=== PATIENT | male | born 1965 | race Caucasian/White ===

== ENCOUNTER 2020-06-24 08:24 | Outpatient (CLI) | payer OTHER, SELFPAY ==
--- NOTE | 2020-06-24 08:50 | ECG_ITS ---
Measurements Intervals Anderson Rate: 101 P: ME: 0 QRS: 40 QRSD: 98 T: 39 QT: 344 QTc: 447 Interpretive Statements ATRIAL FIBRILLATION WITH RAPID VENTRICULAR RESPONSE DELAYED PRECORDIAL R/S TRANSITION BASELINE ARTIFACT- I, II, III, AVR, AVL, AVF ABNORMAL ECG Electronically Signed On 06-24-2020 8:55:57 CDT by Mal Winters D.O.
== END 2020-06-24 08:25 | disposition home or self-care (01) ==
DX: I48.19 Other persistent atrial fibrillation (principal)
CPT/HCPCS: 93005

== ENCOUNTER 2021-01-09 13:51 | Emergency (ER) | payer OTHER, SELFPAY ==
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
[2021-01-09 13:52] VITALS: BP 157/96; PULSE 90; RESP 20; TEMP 36.6; O2SAT 97
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
[2021-01-09] MEDS: traMADol HCL (*CRX) 50 MG TABLET PO (14:46)
[2021-01-09] MEDS: TETANUS,DIPHTHERIA,AC PERTUSSIS ADULT 0.5 ML (ADACEL) IM (14:47)
[2021-01-09] MEDS: NEOMYCIN/POLYMYXIN/BACITRACIN OINTMENT 15 GM TUBE 1 APPLIC TOPICAL (14:48)
[2021-01-09 15:00] VITALS: BP 147/87; PULSE 87; RESP 20; TEMP 37.1; O2SAT 97
== END 2021-01-09 15:02 | disposition home or self-care (01) ==
PROVIDERS: Emergency Provider Emergency Medicine
DX: S13.4XXA Sprain of ligaments of cervical spine, initial encounter (principal); S40.212A Abrasion of left shoulder, initial encounter; S09.90XA Unspecified injury of head, initial encounter; V43.92XA Unspecified car occupant injured in collision with other type car in traffic accident, initial encounter
CPT/HCPCS: 70450; 90471; 90715; 99283; 99284; A9270

== ENCOUNTER 2021-12-04 11:06 | Outpatient (CLI) | payer OTHER, SELFPAY ==
[2021-12-04 11:56] LABS: Anion Gap 8 mmol/L (8-16); Blood Urea Nitrogen 19 mg/dL (7-18); Carbon Dioxide 29 mmol/L (21-32); Chloride 102 mmol/L (98-108); Estimated Glomerular Filt Rate > 60; Glucose 126 mg/dL (70-99); Osmolality Calculated 292 mOsm/kg (285-295); Potassium 4.4 mmol/L (3.5-5.1); Sodium 139 mmol/L (136-145)
== END 2021-12-04 11:07 | disposition home or self-care (01) ==
LOC: CHSLAB 11:16
PROVIDERS: PCP Family Medicine
DX: I48.19 Other persistent atrial fibrillation (principal); R53.83 Other fatigue; I10 Essential (primary) hypertension
CPT/HCPCS: 36415; 80048

== ENCOUNTER 2022-08-15 14:15 | Outpatient (CLI) | payer OTHER, SELFPAY ==
--- NOTE | ~2022-08-15 | XR_ITS ---
XR ankle RT min 3V DATE: 08/15/2022 14:30 INDICATION: Lateral pain and swelling for 3 days TECHNIQUE: 4 views COMPARISON: None FINDINGS: Plantar and posterior calcaneal enthesopathy. Mild lateral soft tissue swelling. No fracture or dislocation of the ankle or disruption of the ankle mortise is detected. No periosteal reaction or bone destruction. IMPRESSION: Mild lateral ankle soft tissue swelling Plantar and posterior calcaneal enthesopathy Reviewed, dictated and finalized at location B. HOME INDEPENDENT CALL CENTER AGENT
== END 2022-08-15 14:16 | disposition home or self-care (01) ==
LOC: CHSIMG 14:16
PROVIDERS: PCP Family Medicine; Visit Provider Family Medicine
DX: M25.571 Pain in right ankle and joints of right foot (principal); M79.89 Other specified soft tissue disorders; M77.31 Calcaneal spur, right foot
CPT/HCPCS: 73610

== ENCOUNTER 2022-08-29 13:28 | Outpatient (RCR) | payer OTHER, SELFPAY ==
--- NOTE | 2022-08-29 14:05 | PTOPEVAL1 ---
Assessment and note entered by JT File, PT Evaluation Information Assessment Status Evaluation Diagnosis R ankle pain, sprain Onset 07/10/22 Subjective Information patient reports he is coming to therapy for pain in the R ankle. he reports he has rolled this ankle many times in his life. he reports about 6 weeks ago he began having intense pain in the ankle, and felt some swelling in the joint. he reports he felt a knot on the side of the R ankle. he reports he has had an xray of the R ankle. 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 he reports he has increased pain in the R ankle with rolling the foot inwards in such a way to cause an inversion sprain. he reports noticing a limp with walking. Reported Pain Level Pain Score 3: Self Report Assessment PT Clinical Summary mr. hooper presents to skilled PT services for evaluation and treatment of R ankle pain. he presents with decreased rom, pain with palpation, swelling, and weakness. 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 he would benefit from skilled PT to improve his ankle strength, rom, stability, and return to his prior level functional activity performance/quality of life. Plan of Care Interventions Electrical Stimulation,Gait Training,Hot Pack/Cold Pack,Manual Therapy,Neuro Re-education,Patient/ Caregiver Educati,Therapeutic Activities, Therapeutic Exercise PT Services Indicated Yes Treatment Frequency and 3x weekly for 9 visits Duration These treatments will address the objective and functional deficits as defined above. The patient will be advanced safely and appropriately in order for the patient to progress towards his/her prior level of function. Additional exercises will be introduced and as well as a comprehensive home exercise program upon discharge, if needed, ?to ensure carryover of functional gains achieved in the clinic. This treatment plan has been reviewed and agreement upon by the patient.
== END 2022-09-17 16:10 | disposition home or self-care (01) ==
LOC: CHSPT 13:28
PROVIDERS: PCP Family Medicine; Visit Provider Family Medicine
DX: M25.571 Pain in right ankle and joints of right foot (principal)
CPT/HCPCS: 97014; 97110; 97112; 97140; 97161; 97530; G0283

== ENCOUNTER 2022-09-29 07:34 | Outpatient (CLI) | payer OTHER, SELFPAY ==
--- NOTE | ~2022-09-29 | MR_ITS ---
MRI of the right ankle Clinical history: Pain Technique: Coronal proton-density and proton-density fat-sat images, axial proton-density and proton- density fat-sat images, and sagittal proton-density and proton-density fat-sat images were acquired. Findings: Distal syndesmotic ligaments are intact. Posterior talofibular ligament and calcaneofibular ligament are intact. Anterior talofibular ligament is not clearly visualized, and presumably may be chronically torn. Deltoid ligament is intact. Medial flexor tendons, anterior extensor tendons, and Achilles tendon are intact. There is a longitud inal split tear of the peroneus brevis tendon at the level of the lateral malleolus. Peroneus longus tendon is intact. There is mild tenosynovitis of the peroneus tendons at the level of the calcaneus. Bone marrow signals are unremarkable. Visualized joint spaces are well-preserved. No significant join t effusion identified. Plantar fascia is intact. Normal signal preserved at the sinus Tarsi. There is minimal subcutaneous s oft tissue edema diffusely, without focal fluid collection. Impression: Longitudinal split tear of the peroneus brevis tendon, at the level of the lateral malleolus. Mild tenosynovitis of the peroneal tendons, as detailed above. Probable at least partial chronic tear of the anterior talofibular ligament. Reviewed, dictated and finalized at location . ATIC CRITIC Impression: Longitudinal split tear of the peroneus brevis tendon, at the level of the late ral malleolus. Mild tenosynovitis of the peroneal tendons, as detailed above. Probable at least partial chronic tear of the anterior talofibular ligament.
== END 2022-09-29 07:35 | disposition home or self-care (01) ==
LOC: CHSIMG 07:36
PROVIDERS: PCP Family Medicine; Visit Provider Family Medicine
DX: M25.571 Pain in right ankle and joints of right foot (principal); S96.811A Strain of other specified muscles and tendons at ankle and foot level, right foot, initial encounter; M65.871 Other synovitis and tenosynovitis, right ankle and foot
CPT/HCPCS: 73721

== ENCOUNTER 2022-10-25 11:44 | Outpatient (CLI) | payer OTHER, SELFPAY ==
--- NOTE | ~2022-10-25 | XR_ITS ---
XR elbow RT min 3V 10/25/2022 12:21 Indication: Right elbow pain Procedure: 4 views right elbow Comparison: No prior studies for comparison. Findings: There is polyarticular osteoarthritis of the right elbow. There are loose bodies adjacent t o the joint space. No significant joint effusion. No foreign bodies. No acute fracture or traumatic m alalignment. 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 Reviewed, dictated and finalized at location L. 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
[2022-10-25 11:55] LABS: Hematocrit 43.2 % (40.0-54.0); Hemoglobin 13.9 g/dL (14.0-18.0); Mean Corpuscular HGB Conc 32.2 g/dL (32.0-36.0); Mean Corpuscular Hemoglobin 27.7 pg (27.0-31.0); Mean Corpuscular Volume 86.1 fL (78.0-102.0); Mean Platelet Volume 8.9 fl (8.7-11.0); Platelet Count Result 242 K/mm3 (150-420); Red Blood Count 5.02 M/mm3 (4.70-6.10); Red Cell Distribution Width 13.5 % (11.6-14.4); White Blood Count 8.2 K/mm3 (4.8-10.8)
[2022-10-25 12:48] LABS: Alanine Aminotransferase 40 U/L (16-63); Albumin Level 3.8 g/dL (3.4-5.0); Alkaline Phosphatase 129 U/L (46-116); Anion Gap 6 mmol/L (8-16); Aspartate Amino Transferase 26 U/L (15-37); Bilirubin,Total 0.3 mg/dL (0.00-1.00); Blood Urea Nitrogen 17 mg/dL (7-18); Calcium 9.1 mg/dL (8.5-10.1); Carbon Dioxide 33 mmol/L (21-32); Chloride 103 mmol/L (98-108); Estimated Glomerular Filt Rate > 60; Glucose 140 mg/dL (70-99); Osmolality Calculated 297 mOsm/kg (285-295); Sodium 142 mmol/L (136-145); Total Protein 7.1 g/dL (6.4-8.2)
== END 2022-10-25 11:45 | disposition home or self-care (01) ==
LOC: CHSLAB 11:44
PROVIDERS: PCP Family Medicine; Visit Provider Family Medicine
DX: Z01.818 Encounter for other preprocedural examination (principal); M25.521 Pain in right elbow; M19.021 Primary osteoarthritis, right elbow
CPT/HCPCS: 36415; 73080; 80053; 85027

== ENCOUNTER 2025-02-10 09:30 | Outpatient (CLI) | payer MEDICARE, SELFPAY ==
[2025-02-10 10:02] LABS: Basophils Absolute Auto 0.04 K/mm3 (0.00-0.10); Basophils Percent Auto 0.6 % (0.0-1.0); Eosinophils Absolute Auto 0.09 K/mm3 (0.02-0.50); Eosinophils Percent Auto 1.3 % (1.0-6.0); Hematocrit 46.7 % (40.0-54.0); Immature Granulocyte Absolute 0.03 K/mm3 (0.00-0.00); Immature Granulocyte Percent A 0.4 % (0.0-0.0); Lymphocytes Absolute Auto 2.34 K/mm3 (1.10-4.50); Lymphocytes Percent Auto 34.8 % (18.0-42.0); Mean Corpuscular HGB Conc 32.1 g/dL (32-36); Mean Corpuscular Hemoglobin 27.7 pg (27.0-31.0); Mean Corpuscular Volume 86.3 fL (78.0-102.0); Mean Platelet Volume 9.1 fl (8.7-11.0); Monocytes Percent Auto 8.9 % (2.0-11.0); Neutrophils Absolute Auto 3.63 K/mm3 (1.70-7.20); Platelet Count Result 217 K/mm3 (150-420); Red Blood Count 5.41 M/mm3 (4.70-6.10); Red Cell Distribution Width 13.4 % (11.6-14.4); White Blood Count 6.7 K/mm3 (4.8-10.8)
[2025-02-10 10:22] LABS: Alanine Aminotransferase 47 U/L (6-50); Albumin Level 4.3 g/dL (3.5-5.1); Alkaline Phosphatase 91 U/L (38-126); Anion Gap 5 mmol/L (4-12); Aspartate Amino Transferase 47 U/L (17-59); Bilirubin,Total 0.6 mg/dL (0.2-1.3); Blood Urea Nitrogen 15 mg/dL (9-20); Calcium 9.1 mg/dL (8.4-10.2); Carbon Dioxide 28 mmol/L (22-30); Chloride 105 mmol/L (98-107); Cholesterol 152 mg/dL (0-200); Estimated Glomerular Filt Rate > 60; Glucose 98 mg/dL (65-110); HDL Direct 56 mg/dL; LDL Cholesterol Calculated 84 mg/dL (<130); Osmolality Calculated 286 mOsm/kg (285-295); Potassium 4.7 mmol/L (3.4-5.0); Sodium 138 mmol/L (137-145); Triglycerides 62 mg/dL (<150)
--- OUTSIDE RECORDS SUMMARY | 2025-02-10 10:29 | XMS_ITS | Clinical Summary ---
Author Organization [facility] Medical Office Building [address] Address [address] [place] [address] Care Team Providers Care Vascular Radiologist Name Role Phone Samia Narayan NP Primary Care Provider [phone] Allergies No known active allergies Medications dilTIAZem XR (CARDIZEM CD,DILACOR XR) 240 mg 24 hr capsuleIndicatio ns:Atrial fibrillation, unspecified type (HCC) Take 1 capsule (240 mg total) by mouth daily 30 capsule 3 07/03/2019 Active Pacerone 200 mg tablet 06/17/2020 Active metoprolol XL (TOPROL-XL) 50 mg extended release tablet Take 50 mg by mouth daily 06/14/2020 Active apixaban (ELIQUIS) 5 mg tablet Take 5 mg by mouth 2 (two) times a day 05/27/2019 Active Active Problems Problem Noted Date Diagnosed Date Lung mass 07/20/2014 Overview (11/29/2016): Lung mass Pulmonary function studies abnormal 07/20/2014 Overview (11/29/2016): Abnormal results of pulmonary function studies Abnormal lobation of lung 07/20/2014 Overview (11/29/2016): Abnormal lung lobation Asbestos pleurisy 07/20/2014 Overview (11/29/2016): Acute asbestos pleurisy Surgical History Surgery Date Site/Laterality Comments KNEE SURGERY KNEE ARTHROSCOPY CARPAL TUNNEL RELEASE Medical History Medical History Date Comments Hx Other Medical 2001 Lasix Hx Other Medical hiatal hernia Hx Other Medical chest re-attach ment Hiatal hernia Hypertension Social History Tobacco Use Types Packs/Day Years Used Date Smoking Tobacco: Never Smokeless Tobacco: Never Alcohol Use Standard Drinks/Week Comments No 0 (1 standard drink = 0.6 oz pur e alcohol) Sex and Gender Information Value Date Recorded Sex Assigned at Not on file Legal Sex Male 11:32 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 Gender Identity Not on file Sexual Orientation Not on file Obstetrics History Last Filed Vital Signs Vital Sign Reading Time Taken Comments Blood Pressure 137/83 06/21/2020 10:42 AM CDT Pulse 71 06/21/2020 10:42 AM CDT Temperature 36.8 C (98.2 F) 06/21/2020 10:42 AM CDT Respiratory Rate - - Oxygen Saturation 96% 07/20/2014 3:29 PM KNOWLEDGE ANALYST Inhaled Oxygen Concentration - - Weight 122.5 kg (270 lb) 06/21/2020 10:42 AM CDT Height 185.4 cm (6' 1) 06/21/2020 10:42 AM CDT Body Mass Index 35.62 06/21/2020 10:42 AM CDT Plan of Treatment Not on file Insurance [employer] OPEN ACCESS Care Teams Vascular Radiologist Relationship Specialty Start Date End Date Samia Narayan NP PCP - General Nurse Practitioner 06/15/20
--- OUTSIDE RECORDS SUMMARY | 2025-02-10 10:29 | XMS_ITS | Continuity of Care Document ---
Author Organization [facility] Address [address] [facility] [address] [place] [address] Phone Care Team Providers Care Outreach Worker Name Role Phone Tien Huffman MD, FACS Unavailable Unavailab le Advance Directives Directive Yes / No Effective Date File Name No Information Encounters Encounter Description Practice Location Reason(s) For Visit Diagnoses Date Provider Providers Copied on Encounter [facility], [address], [place], [place], [id number], [place] tel:[phone] [facility] 67 No Information [address]anael Chauhan. [address], [address], [place], [place], [id number], [place]. tel:[phone] Family History Family Member Type Diagnosis Age At Onset No Information Payers Payer name Insurance type Covered green party ID Authoriza tiklaus(s) VSP CI [id number] Social History Type Description Quantity Date Captured Comments Sex Male Smoking Status No Information Chief Complaint And Reason For Visit No Information Reason For Referral Reason For Referral No Information History Of Present Illness Encounter Date Complaint History Of Prese nt Illness No Information Functional Status Date Functional Assessmen t No Information Instructions Date Instruction Additional Infor mation No Information Assessments Type Assessment Date No Information Patient Care Teams Name Effective Dates (start - stop) Status Members No Information
--- OUTSIDE RECORDS SUMMARY | 2025-02-10 10:29 | XMS_ITS | Clinical Summary ---
Author Organization [facility] Address [address] [place] [address] Phone Care Team Providers Care End Polisher Name Role Phone Unavailable Primary Care Provider Unavailabl e Allergies No known active allergies Medications Aspirin 81 MG Tablet Take 81 mg by mouth daily. Active dilTIAZem (CARDIZEM CD) 240 MG CAPSULE SR 24 HR Take 240 mg by mouth. 9 Active PACERONE 200 MG Tablet TAKE 1 TABLET BY MOUTH EVERY DAY 90 Tab 3 0 Active Eliquis 5 MG Tablet TAKE 1 TABLET BY MOUTH TWICE A DAY. INDICATIONS: ATRIAL FIBRILLATION 180 Tablet 1 Active Active Problems Problem Noted Date Diagnosed Date Obstructive sleep apnea 10/21/2019 On continuous oral anticoagulation 10/21/2019 History of snoring 09/25/2019 Myalgia 05/29/2019 Osteoarthrosis 05/29/2019 Polyarthralgia Pain in unspecified joint 019 Undifferentiated inflammatory polyarthritis 11/2018 Atrial fibrillation with RVR 05/25/2019 Atrial fibrillation 09/25/2017 Pulmonary function studies abnormal 07/20/2014 Overview (09/25/2017): Overview: Abnormal results of pulmonary function studies Lung mass 07/20/2014 Overview (09/25/2017): Overview: Lung mass Asbestos pleurisy 07/20/2014 Overview (09/25/2017): Overview: Acute asbestos pleurisy Abnormal lobation of lung 07/20/2014 Overview (09/25/2017): Overview: Abnormal lung lobation Hypertension Overview (05/25/2019): Hx Resolved Problems Problem Noted Date Diagnosed Date Resolved Date High blood pressure 09/25/2019 09/28/19 20 High blood pressure 07/29/2018 09/28/19 20 Immunizations Immunization Administration Dates Next Due TDAP Vaccine 09/24/2017 Family History Medical History Relation Name Comments No Known Problems Father Heart Surgery Mother Relation Name Status Comments Father Alive Mother Alive Social History Tobacco Use Types Packs/Day Years Used Date Smoking Tobacco: Never Smokeless Tobacco: Never Alcohol Use Standard Drinks/Week Comments No 0 (1 standard drink = 0.6 oz pur e alcohol) PHQ-2 Answer Date Recorded Total Score - Questions 1-9 0 05/27 Sex and Gender Information Value Date Recorded Sex Assigned at Not on file Legal Sex Male 11:[address] REFEREE Gender Identity Not on file Sexual Orientation Not on file Last Filed Vital Signs Vital Sign Reading Time Taken Comments Blood Pressure 118/82 06/14/2020 7:36 AM CDT unable to get due to afib Pulse 113 06/14/2020 7:36 AM CDT Temperature 36.7 C (98 F) 06/14/2020 7:36 AM CDT Respiratory Rate 18 06/14/2020 7:36 AM CDT Oxygen Saturation 98% 06/14/2020 7:3 6 AM CDT Inhaled Oxygen Concentration - - Weight 123.5 kg (272 lb 3.2 oz) 06/14/2020 7:36 AM CDT Height 185.4 cm (6' 1) 06/14/2020 7:36 AM CDT Body Mass Index 35.91 06/14/2020 7:36 AM CDT Plan of Treatment Health Maintenance Due Date Last Done Comments Hepatitis C Virus (HCV) Screening 1965 Hepatitis B Immunization (1 of 3 - 19+ 3-dose series) 1985 Cologuard 01/01/2012 Colonoscopy 01/01/2012 Pneumococcal Immunization (5 0+ years) (1 of 1 - PCV) 2016 Zoster Immunization (1 of 2) 2016 Colorectal Cancer Screening 09/30/2020 Immunochemical Fecal Occult Blood 09/30/2020 020 SARS-COV-2 Immunization ( season) 2024 Influenza Immunization (Seas on Ended) 2025 Td Immunization Every 10 Yea rs (Adults With 1 Tdap) 09/24/2027 09/24/2017 Respiratory Syncytial Virus (RSV) Immunization (Adult) (1 - 1-dose 75+ series) 2041 PSA Discussion Discontinued 11/17/2018 Human Papillomavirus (HPV) Immunization Aged Out No longer eligible b ased on patient's age to complete this topic Meningococcal Immunization (ACWY) Aged Out No longer eligible based on patient's age to complete this topic Rotavirus Immunization Aged Out No lo nger eligible based on patient's age to complete this topic Procedures Procedure Name Priority Date/Time Associated Diagnosis Comments STOOL, OCCULT BLOOD IMMUNOASSAY (IFOB) Routine 09/30/2019 10:[address] REFEREE Colon cancer screening PSA FREE & TOTAL Routine 11/17/2018 3:47 PM CDT Preventative health care (Adult) from Last 3 Months or Most Recently Relevant to Health Maintenance Results * STOOL, OCCULT BLOOD IMMUNOASSAY (IFOB) (09/30/2019 10:[address] REFEREE) OCCULT BLOOD - IFOB Negative Negative 09/30/2019 6:[address] REFEREE [facility] Specimen of unknown material (specimen) STOOL SPECIMEN / Unknown Non-Phlebotomy Collection / Unknown 09/30/2019 10:[address] REFEREE 09/30/2019 10:[address] REFEREE us Samia Narayan APRN, CNP BODY FLUIDS & STOOLS OR DERABLES Final Result [facility] [address] [place] [address], * PSA FREE & TOTAL (11/17/2018 3:47 PM CDT) Prostatic Specific Antigen, Free 0.13 ng/mL 11/17/2018 10:53 PM CDT [facility] PSA, TOTAL (PROSTATIC SPECIFIC ANTIGEN) 0.38 <4.00 ng/mL 11/17/2018 10:53 PM CDT [facility] PSA, % FREE 34.2 % 11/17/2018 10:53 PM CDT [facility] Comment: PSA NG/ML FREE PSA % EST PROB CANCER % 2.6- 4.0 0-27 24 4.1-10.0 0-10 56 11-15 28 16-20 20 21-25 16 >25 8 THESE ESTIMATES VARY WITH AGE, ETHNICITY, FAMILY HISTORY AND GOSIA RESULTS. THE DIAGNOSTIC USEFULNESS OF % FREE PSA HAS NOT BEEN ESTABLISHED IN PATIENTS WITH TOTAL PSA BELOW 2.6 NG/ML. IN MEN WITH A PSA LEVEL ABOVE 10 NG/ML, PROSTATE CANCER RISK IS DETERMINED BY TOTAL PSA ALONE. Blood specimen (specimen) Venipuncture / Unknown 11/17/2018 3:47 PM CDT 11/17/2018 3:47 PM CDT Samia Narayan APRN, CNP CHEMISTRY ORDERABLES [facility] Result [facility] [address] [place] [address], from Last 3 Months or Most Recently Relevant to Health Maintenance Insurance [employer] Advance Directives * Full Code (Latest Code Status on File) Date Activated Date Inactivated Comments 05/25/2019 5:07 PM 05/27/2019 2:13 PM CPR-Full Gonzales atment: FULL ARREST: Attempt Resuscitation/CPR wit intubation and mechanical ventilation. PRE-ARREST: Use entire range of life support measures to stabilize the patient.
--- OUTSIDE RECORDS SUMMARY | 2025-02-10 10:29 | XMS_ITS | Referral Summary ---
Author Organization [facility] Medical Office Building [address] Address [address] [place] [address] Care Team Providers Care Sales Promotion Manager Name Role Phone Samia Narayan NP Primary Care Provider [phone] Allergies No known active allergies Medications dilTIAZem [...] pleurisy 07/20/2014 Overview (11/29/2016): Acute asbestos pleurisy Social History Tobacco Use Types Packs/Day Years Used Date Smoking Tobacco: Never Smokeless Tobacco: Never Alcohol Use Standard Drinks/Week Comments No 0 (1 standard drink = 0.6 oz pur e alcohol) Sex and Gender Information Value Date Recorded Sex Assigned at Not on file Legal Sex Male 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 Gender Identity Not on file Sexual Orientation Not on file Last Filed Vital Signs Vital Sign Reading Time Taken Comments Blood Pressure 137/83 06/21/2020 10:42 AM CDT Pulse 71 06/21/2020 10:42 AM CDT Temperature 36.8 C (98.2 F) 06/21/2020 10:42 AM CDT Respiratory Rate - - Oxygen Saturation 96% 07/20/2014 3:29 PM COMMUNITY HEALTH EDUCATOR Inhaled Oxygen Concentration - - Weight 122.5 kg (270 lb) 06/21/2020 10:42 AM CDT Height 185.4 cm (6' 1) 06/21/2020 10:42 AM CDT Body Mass Index 35.62 06/21/2020 10:42 AM CDT Plan of Treatment Not on file Insurance [employer] OPEN ACCESS Care Teams Sales Promotion Manager Relationship Specialty Start Date End Date Samia Narayan NP PCP - General Nurse Practitioner 06/15/20
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
== END 2025-02-10 09:31 | disposition home or self-care (01) ==
LOC: CHSLAB 09:35
PROVIDERS: PCP Family Medicine; Visit Provider Family Medicine
DX: E03.9 Hypothyroidism, unspecified (principal); I48.20 Chronic atrial fibrillation, unspecified
CPT/HCPCS: 36415; 80053; 80061; 84443; 85025

== ENCOUNTER 2025-02-16 12:19 | Outpatient (CLI) | payer MEDICARE, SELFPAY ==
--- NOTE | ~2025-02-16 | US_ITS ---
Ankle Brachial Index with Ultrasound Dopplers and Pulse Volume Recordings Technique: Pressures in the arm and lower extremity were obtained. Additionally, arterial and pulse v olume waveforms were obtained bilaterally. Findings: Segmental pressures Right posterior tibial: 219 Right dorsalis pedis: 202 Left posterior tibial: 191 Left dorsalis pedis: 201 There are normal triphasic waveforms bilaterally. Biphasic waveforms within the great toe bilaterally FIDEL Right 1.3 Left 1.2 TBI Right 1.0 Left 1.1 Impression: No evidence of peripheral vascular disease to account for patient's symptoms of neuropath y, as detailed above. Reviewed, dictated and finalized at location A. Impression: No evidence of peripheral vascular disease to account for patient's symptoms of neuropathy, as detailed above.
--- NOTE | ~2025-02-16 | US_ITS ---
EXAMINATION: US carotid duplex BI DATE: 02/16/2025 13:12 INDICATION: Carotid bruit TECHNIQUE: Grayscale, color Doppler, and pulsed Doppler images of the cervical carotid arteries were obtained. The degree of vessel stenosis is placed in one of the following categories: normal, <50%, 5 0-69%, >=70% but less than near-occlusion, near-occlusion, or total occlusion. Note that percent sten osis relative to normal distal artery lumen diameter is indirectly measured from velocity measurement s as described by Phil, et al. Radiology 2003; 229:340-346. COMPARISON: None. FINDINGS: RIGHT: The right common carotid artery (CCA) peak systolic velocity (PSV) is 115 cm/s. The right internal ca rotid artery (ICA) PSV is 92 cm/s. The right ICA end-diastolic velocity (EDV) is 42 cm/s. The right I CA/CCA PSV ratio is 0.8. Grayscale and color Doppler images yield an estimate of <50% diameter reduct ion from plaque in the ICA. The external carotid artery (ECA) PSV is 109 cm/s. There is antegrade yumiko w in the right vertebral artery. LEFT: The left CCA PSV is 113 cm/s. The left ICA PSV is 75 cm/s. The left ICA EDV is 34 cm/s. The left ICA/ CCA PSV ratio is 0.7. Grayscale and color Doppler images yield an estimate of <50% diameter reduction from plaque in the ICA. The ECA PSV is 109 cm/s. There is antegrade flow in the left vertebral arter y. IMPRESSION: 1. <50% stenosis in the right internal carotid artery. 2. <50% stenosis in the left internal carotid artery. Reviewed, dictated and finalized at location A.
== END 2025-02-16 12:20 | disposition home or self-care (01) ==
LOC: CHSIMG 12:22
PROVIDERS: PCP Family Medicine; Visit Provider Family Medicine
DX: R09.89 Other specified symptoms and signs involving the circulatory and respiratory systems (principal); I73.9 Peripheral vascular disease, unspecified; I65.23 Occlusion and stenosis of bilateral carotid arteries
CPT/HCPCS: 93880; 93922